=== PATIENT | female | born 1955 | race Caucasian/White ===

== ENCOUNTER 2016-02-26 21:21 | Observation (INO) | payer OTHER ==
[~2016-02-26] VITALS: Ht 165.1 cm; Wt 56.7 kg
[~2016-02-26 21:21] MED LIST: ADVAIR DISKUS 21 DSK IH; ADVAIR DISKUS 51 DSK IH; ADVAIR HFA1 AE1 IH; ATIVAN1 MG PO; AUGMENTIN 250 M1 TAB PO; AUGMENTIN 875 M1 TAB PO; BACLOFEN10 M1 PO; BACTRIM DS 8001 TA1 PO; BENADRYL50 MG PO; CEFDINIR300 MG PO; CEPHALEXIN500 M2 PO; DELTASONE20 MG PO; DELTASONE5 MG PO; DEPAKOTE PO; DIAZEPAM10 M1 PO; DIFLUCAN100 MG PO; ESKALITH300 M3 PO; KEFLEX500 M1 PO; KLONOPIN1 MG PO; NORCO 325 MG-51 TAB PO; NORCO 5/325 MG1 TAB PO; ORETIC25 MG PO; PREDNISONE50 M1 PO; PROVENTIL2.5 MG/3 M INH; RESTORIL15 MG PO; RESTORIL30 MG PO; SEROQUEL25 MG PO; SULFA PO; TEMAZEPAM7.5 M1 PO; TRAMADOL50 MG PO; TRAZODONE50 MG PO; TRIAZOLAM0.25 MG PO; TUSSIN PO; VENTOLIN H0.09 MG/Ac IH; VICODIN; VICODIN 5/500 M1 TAB PO; XANAX0.5 MG PO; XOPENEX HF0.045 MG/A IH; XOPENEX1.25 MG/0. INH; Z PACK; [UNRECOGNIZED DRUG - OTHER] IL; [UNRECOGNIZED DRUG - OTHER] OP; [UNRECOGNIZED DRUG - OTHER] PO
[2016-02-26 21:43] VITALS: BP 103/73
[2016-02-26] MEDS ORDERED: ASPIRIN 325 MG TAB PO ONE (21:50)
--- NOTE | 2016-02-26 23:25 | NUR ---
PT TO ER BED 2
--- NOTE | 2016-02-26 23:31 | NUR ---
Note undone in EDM - 02/27/16 at 0135 by TANYA PATIENT PRESENTS TO ED WITH C/O SEVERE CHEST PAIN SINCE 02/06, AND FOUL SMELLING URINE. HX COPD AND HTN. DENIES N/V/D; SKIN IS PINK/WARM/DRY; AAOX4 WITH EVEN AND STEADY GAIT; LUNGS CLEAR BL; HR EVEN AND REGULAR; PT DENIES ANY FEVER, SOB, OR COUGH AT THIS TIME; PATIENT STATES PAIN OF 10/10 AT THIS TIME; VSS; PATIENT POSITIONED FOR COMFORT; HOB ELEVATED; BEDRAILS UP X2; BED DOWN. ER MD MADE AWARE OF PT STATUS.
[2016-02-27] MEDS ORDERED: MORPHINE SULFATE 2 MG/ML SYR IVP PRN (01:15)
[2016-02-27] MEDS ORDERED: ONDANSETRON 4 MG/2 ML VIAL IVP PRN (01:15)
[2016-02-27] MEDS ORDERED: NITROGLYCERIN 0.4 MG TAB SL PRN (01:15)
--- NOTE | 2016-02-27 01:35 | NUR ---
PATIENT PRESENTS TO ED WITH C/O SEVERE CHEST PAIN SINCE 02/06, AND FOUL SMELLING URINE. HX COPD AND HTN. DENIES N/V/D; SKIN IS PINK/WARM/DRY; AAOX4 WITH EVEN AND STEADY GAIT; LUNGS CLEAR BL; HR EVEN AND REGULAR; PT DENIES ANY FEVER, SOB, OR COUGH AT THIS TIME; PATIENT STATES PAIN OF 10/10 AT THIS TIME; VSS; PATIENT POSITIONED FOR COMFORT; HOB ELEVATED; BEDRAILS UP X2; BED DOWN. ER MD MADE AWARE OF PT STATUS. .DENIES N/V/D; SKIN IS PINK/WARM/DRY; AAOX4 WITH EVEN AND STEADY GAIT; LUNGS CLEAR BL; HR EVEN AND REGULAR; PT DENIES ANY FEVER, SOB, OR COUGH AT THIS TIME; PATIENT STATES PAIN OF 9/10 AT THIS TIME; VSS; PATIENT POSITIONED FOR COMFORT; HOB ELEVATED; BEDRAILS UP X2; BED DOWN. ER MD MADE AWARE OF PT STATUS.
--- NOTE | 2016-02-27 01:44 | NUR ---
Patient will be admitted to care of DR. SHIELDS. Admited to TELE OBS. Will go to room 120A. Belongings list completed. Report to NORA DOAN.
[2016-02-27 01:59] VITALS: BP 121/70
--- NOTE | 2016-02-27 02:39 | NUR ---
RECEIVED FROM ER PER SUKH AWAKE AND ALERT. DENIES ANY CHEST PAIN AT THIS TIME. ON TELEMETRY MONITORING. NO SOB. ON 02 AT 2 LPM/NC. AFEBRILE. SKIN INTACT. CARE PLANS FOR THE NIGHT DISCUSSED WITH HER. A/O X 4. ROM X 4. DX. R/O ACS. CALL LIGHT WITH IN REACH. KEPT BED ON LOW POSITION. HL.
--- NOTE | 2016-02-27 04:03 | NUR ---
SLEEPING. NO RESTLESSNESS NOTED. TELEMETRY MONITORING.
[2016-02-27 04:11] VITALS: BP 119/68
--- NOTE | 2016-02-27 06:00 | NUR ---
SLEEPING. TELEMETRY MONITORING. NSR IN DATA SME. NO SOB. NO RESTLESSNESS NOTED.
--- NOTE | 2016-02-27 07:34 | NUR ---
ENDORSED TO THE NEXT RN FOR CONTINUITY OF CARE. EATING BREAKFAST AND IS SITTING UP IN BED.
--- NOTE | 2016-02-27 07:35 | NUR ---
RECEIVED REPORT FROM THE NIGHTSHIFT NURSE AT BEDSIDE FOR CONTINUITY OF CARE. PT IS ALERT AND ORIENTED. INTRODUCED MYSELF, UPDATED THE BOARD. PT IS EATING HER BREAKFAST. SHE C/O OF HER GOWN BEING WET. SHE HAD SPILLED HER JUICE ON HER GOWN. NO C/O OF CHEST PAIN. NO SIGNS OF DISTRESS. NOTED THE R FA 22G SL. WANTED TO GET UP AND AMBULATE TO THE BATHROOM. WILL CONTINUE TO MONITOR PT.
[2016-02-27 08:00] VITALS: BP 122/68
--- NOTE | 2016-02-27 08:00 | NUR ---
PT V/S WERE WITHIN NORMAL LIMITS. CHANGED HER GOWN AND HER LINENS. PT IS AMBULATING WELL. WONDERED IF SHE WILL GET D/C'D TODAY. SHE NEEDS TO CONTACT HER FRIEND FOR RIDE. NO ORDERS OF YET. NOTIFIED HER. NO OTHER COMPLAINTS AT THIS TIME. MET ALL HER NEEDS. WILL CONTINUE TO MONITOR PT.
[2016-02-27] MEDS: FAMOTIDINE 20 MG TAB PO SCH ×2 (08:46→20:15)
[2016-02-27] MEDS: clonazePAM 0.5 MG TAB PO SCH ×2 (08:48→20:15)
[2016-02-27] MEDS: NICOTINE TRANSD SYS 21 MG/24 HR PATCH TD SCH (08:49)
[2016-02-27] MEDS: HYDROcodone/APAP 5/325 MG 1 TAB TAB PO PRN ×2 (09:02→15:20)
--- NOTE | 2016-02-27 10:16 | NUR ---
PT IS SLEEPING COMFORTABLY. NO SIGNS OF DISTRESS. WILL CONTINUE TO MONITOR.
[2016-02-27 12:00] VITALS: BP 115/69
--- NOTE | 2016-02-27 12:10 | NUR ---
PT EATING HER LUNCH. PT IS AWAKE AND ORIENTED. ADRIANA, HER AGENT BROKER CALLED. GOT HER NUMBER AND GAVE TO PT REQUESTED SO THAT SHE CAN CALL. CALL LIGHT WITHIN REACH. NO COMPLAINTS AT THIS TIME. WILL CONTINUE TO MONITOR PT.
--- NOTE | 2016-02-27 13:16 | NUR ---
PT IS SOUNDLY ASLEEP. NO SIGNS OF DISTRESS. WILL CONTINUE TO MONITOR PT.
--- NOTE | 2016-02-27 15:00 | NUR ---
PT IS SLEEPING. SHE CLAIMS SHE IS VERY TIRED. HER ENVIRONMENTAL INSPECTOR DROPPED OFF CLOTHES. NO COMPLAINTS AT THIS TIME. WILL CONTINUE TO MONITOR.
[2016-02-27 16:00] VITALS: BP 125/76
--- NOTE | 2016-02-27 17:00 | NUR ---
PT WENT TO HAVE HER CT DONE.
[2016-02-27] MEDS: AZITHROMYCIN 250 MG in DEXTROSE 5% 250 ML IV SCH (17:13)
--- NOTE | 2016-02-27 18:36 | NUR ---
PT IS SLEEPING. DINNER BARELY TOUCHED. NO SIGNS OF DISTRESS. WILL CONTINUE TO MONITOR PT.
--- NOTE | 2016-02-27 19:04 | NUR ---
ENDORSED PT TO THE PATIENT REGISTRATION CLERK NURSE AT BEDSIDE FOR CONTINUITY OF CARE. PT IS IN STABLE CONDITION.
--- NOTE | 2016-02-27 19:30 | NUR ---
RECEIVED REPORT FROM NORA GUTIÉRREZ, AT BEDSIDE. INITIAL ASSESSMENT AND BODY CHECK DONE. PATIENT AAO X 4, ABLE TO FOLLOW COMMAND AND MAKE NEEDS KNOWN AND AMBULATORY BY SELF WITH STEADY GAIT. PATIENT CURRENTLY LYING DOWN ON THE BED. NO S/S OF DISTRESS OR SOB. PATIENT WAS COMPLAINING NAUSEA AT THIS TIME. SKIN WARM/DRY TO TOUCH WITH NORMAL COLOR AND INTACT. DISCUSSED PLAN OF CARE, PAIN MANAGEMENT AND MEDICATION REGIMEN WITH PATIENT AND PATIENT VERBALIZED UNDERSTANDING. PLACED PATIENT ON SAFETY PRECAUTIONS AND WILL CONTINUE TO MONITOR. CALL LIGHT LEFT WITHIN REACH.
[2016-02-27 19:50] VITALS: BP 120/75
[2016-02-27] MEDS: methylPREDNISolone SS 40 MG/ML VIAL IVP SCH (20:14)
--- NOTE | 2016-02-27 21:39 | NUR ---
ADMINISTERED DUE MEDICATIONS AND ZOFRAN FOR C/O NAUSEA MD'S ORDERED WITH EDUCATION GIVEN. PATIENT COMPLYING WITH MEDICATIONS AND STATED WITH SOME NAUSEA RELIEF AFTER POST-MEDICATION. ALL NEEDS ARE ATTENDED. KEPT PATIENT IN COMFORTABLE POSITION/WARM AND WILL CONTINUE TO MONITOR.
[2016-02-28] VITALS: BP 118/53
[2016-02-28] MEDS: HYDROcodone/APAP 5/325 MG 1 TAB TAB PO PRN ×3 (00:01→16:30)
--- NOTE | 2016-02-28 00:30 | NUR ---
PATIENT C/O MILD HEADACHE AND MEDICATED WITH NORCO. V/S REMAINED WNL AND NO S/S OF DISTRESS NOTED. WILL CONTINUE TO MONITOR.
[2016-02-28 04:00] VITALS: BP 112/60
--- NOTE | 2016-02-28 04:15 | NUR ---
PATIENT IS CLINICALLY STABLE WITH UNCHANGED V/S. WILL CONTINUE TO MONITOR.
[2016-02-28] MEDS: methylPREDNISolone SS 40 MG/ML VIAL IVP SCH ×2 (04:35→12:14)
--- NOTE | 2016-02-28 07:18 | NUR ---
PATIENT RESTED WELL THROUGHOUT THE SHIFT AND REMAINED IN STABLE CONDITION WITHOUT S/S OF DISTRESS NOTED. ENDORSED PLAN OF CARE, NORA LEVINE, AT BEDSIDE.
--- NOTE | 2016-02-28 07:19 | NUR ---
RECEIVED REPORT FROM NORA LOUIE. PT IS AAOX4. PT ON 2L NC O2 SAT AT 90%, NO S/S OF DISTRESS NOTED. IV TO RIGHT FA #22, PATENT AND INTACT.SKIN INTACT. NO N/V OR PAIN INDICATED. ALL SAFETY PRECAUTIONS IN PLACE, SIDE RAILSX2, BED IN LOW POSITION, AND CALL LIGHT WITHIN REACH. WILL CONTINUE TO MONITOR.
--- NOTE | 2016-02-28 07:42 | NUR ---
AWAKE AND ALERT RESPONSIVE DENIES SOB PATIENT WITH BREAKFAST TRAY AT THIS TIME C/O NASAL DRYNESS BARREL CAP SETTER TO ADD HUMIDIFIER
[2016-02-28 08:00] VITALS: BP 125/78
--- NOTE | 2016-02-28 08:37 | NUR ---
PATIENT HAS BEEN SCREENED AND CATEGORIZED MODERATE NUTRITION RISK. PATIENT WILL BE SEEN WITHIN 3-5 DAYS OF ADMISSION. 03/01/16 - 03/03/16 BENEDICTO DE LA ROSA; MICHAEL, RD
[2016-02-28] MEDS: IPRATROPIUM 0.02% 0.5 MG/2.5 ML NEBU INH PRN ×2 (08:43→13:30)
[2016-02-28] MEDS: ALBUTEROL 0.083% 2.5 MG/3 ML NEBU IH PRN ×2 (08:43→13:30)
[2016-02-28] MEDS: NICOTINE TRANSD SYS 21 MG/24 HR PATCH TD SCH (09:01)
[2016-02-28] MEDS: FAMOTIDINE 20 MG TAB PO SCH (09:04)
[2016-02-28] MEDS: clonazePAM 0.5 MG TAB PO SCH (09:07)
--- NOTE | 2016-02-28 09:13 | NUR ---
PT TOLERATED MEDS WELL. VSS. NICOTINE PATCH PLACED TO LEFT UPPER ARM. WILL CONTINUE TO MONITOR.
--- NOTE | 2016-02-28 10:30 | NUR ---
PT SLEEPING WITH NO DISTRESS NOTED.
[2016-02-28 12:00] VITALS: BP 108/62
--- NOTE | 2016-02-28 12:18 | NUR ---
PT TOLERATED MEDS WELL. WILL CONTINUE TO MONITOR.
--- NOTE | 2016-02-28 13:30 | NUR ---
SATURATION 89% ON SUPPLEMENATL OXYGEN AT 2 LPM VIA NC PATIENT STATES THAT SHE USES 2.5 LPM AT HOME POST [facility] THERAPY INCREASED SUPPLEMENTAL OXYGEN T0 2.5 LPM TO KEPP SATURATTION GREATER THAN 90% INTERMISSION COORDINATOR TO NOTIFY RN
--- NOTE | 2016-02-28 13:35 | NUR ---
PT SLEEPING WITH NO DISTRESS NOTED.
[2016-02-28] MEDS ORDERED: ASPIRIN81 M1 PO (15:40)
[2016-02-28] MEDS ORDERED: LIPITOR20 MG PO (15:41)
[2016-02-28] MEDS ORDERED: DIFLUCAN150 M1 PO (15:43)
[2016-02-28 16:00] VITALS: BP 114/51
[2016-02-28] MEDS ORDERED: COREG3.125 MG PO (16:19)
[2016-02-28] MEDS: AZITHROMYCIN 250 MG in DEXTROSE 5% 250 ML IV SCH (16:30)
--- NOTE | 2016-02-28 16:33 | NUR ---
PT TOLERATED MEDS WELL. PT C/O 08/22, ON RIGHT LOWER SIDE. VSS. ADMINISTERED NORCO ORDERED. WILL CONTINUE TO MONITOR.
--- NOTE | 2016-02-28 18:04 | NUR ---
PT TO BE DISCHARGED. WILL FOLLOW UP ON ORDERS.
--- NOTE | 2016-02-28 18:40 | NUR ---
PT HAS BEEN DISCHARGED. ALL PAPERWORK SIGNED. ALL QUESTIONS ANSWERED. ALL BELONGINGS AND PRESCRIPTIONS IN PT POSSESSION. IV DC'ED WITH CANNULA INTACT. WRISTBANDS AND TELE MONITOR REMOVED. NOTIFIED PRESSURE STEAMER TENDER, DOES NOT HAVE TO BE SEEN BY ADMITTING DUE 24HR STAY. PT WHEELED OUT OF UNIT WITH CAREGIVER AT BEDSIDE, TRANSPORT O2 BROUGHT BY CAREGIVER. PT IN STABLE CONDITION.
[2016-02-29] MEDS ORDERED: ASPIRIN 81 MG TAB.CHEW PO SCH (09:00)
[2016-02-29] MEDS ORDERED: ATORVASTATIN 20 MG TAB PO SCH (09:00)
[2016-02-29] MEDS ORDERED: CARVEDILOL 3.125 MG TAB PO SCH (09:00)
--- NOTE | 2016-02-29 14:24 | NUR ---
CM NOTE H&P & ER NOTES FAXED TO [facility] / FAX# [phone], ATTN: HUNTER #[phone] [id number]
== END 2016-02-28 18:40 | disposition home or self-care (01) ==
LOC: MED 21:21 → MTU 02-27 01:18
PROVIDERS: ADMIT Hospitalist; ATTEND Hospitalist
PROC: 3E0F7GC Introduction of Other Therapeutic Substance into Respiratory Tract, Via Natural or Artificial Opening (ICD-10-PCS; principal; 2016-02-28)
DX: J44.9 Chronic obstructive pulmonary disease, unspecified (principal); J96.10 Chronic respiratory failure, unspecified whether with hypoxia or hypercapnia; I10 Essential (primary) hypertension; Z99.81 Dependence on supplemental oxygen; F17.200 Nicotine dependence, unspecified, uncomplicated; Z86.73 Personal history of transient ischemic attack (TIA), and cerebral infarction without residual deficits; Z87.01 Personal history of pneumonia (recurrent); F41.9 Anxiety disorder, unspecified
CPT/HCPCS: 36415; 71010; 71250; 80053; 82550; 82553; 83735; 83880; 84484; 85025; 85379; 85610; 85730; 87081; 87804; 93005; 94640; 94760; 96365; 96366; 96372; 96375; 96376; 99285; G0378; J0456; J1644; J2405; J2920; J7030; J7060; J7613; J7644

== ENCOUNTER 2016-03-22 12:52 | Emergency (ER) | payer OTHER ==
[~2016-03-22] VITALS: Ht 165.1 cm; Wt 54.4 kg
[~2016-03-22 12:52] MED LIST changes: +ASPIRIN81 M1 PO; +COREG3.125 MG PO; +DIFLUCAN150 M1 PO; +LIPITOR20 MG PO
[2016-03-22 12:56] VITALS: BP 115/75
--- NOTE | 2016-03-22 13:31 | NUR ---
TO X-RAY VIA WC=
--- NOTE | 2016-03-22 13:50 | NUR ---
61 F BIB [facility]REIND C/O SHARP PAIN R UPPER BACK X 2 WKS. DENIES N/V/D; SKIN IS PINK/WARM/DRY; AAOX4 WITH EVEN AND STEADY GAIT;PT NOTED W/ SOB,ON O2 AT HOME 2.5 L/M, LUNGS CONGESTED BL; HR EVEN AND REGULAR; PT DENIES ANY FEVER OR COUGH AT THIS TIME; PATIENT STATES PAIN OF 08/22 AT THIS TIME; PATIENT POSITIONED FOR COMFORT; HOB ELEVATED; BEDRAILS UP X2; BED DOWN. BIGG MARIE MADE AWARE OF PT STATUS. Addendum: 03/22/16 at 1423 by MED1 PT C/O L RIB PAIN, SHARP, NON RADIATING 08/22, X 1 YEAR.
--- NOTE | 2016-03-22 14:50 | NUR ---
WARM BLANKET/PILLOW PROVIDED TO PT FOR COMFORT.
--- NOTE | 2016-03-22 14:55 | NUR ---
ER MD DR. DELGADO EVALUATING PT AT BEDSIDE.
--- NOTE | 2016-03-22 15:00 | NUR ---
Ricardo martinez in [facility] - 03/22/16 at [email or web address] DELGADO AT BEDSIDE
[2016-03-22] MEDS ORDERED: ALBUTEROL SULFATE/IPRATROPIU 3 ML SOL IH ONE (15:05)
[2016-03-22] MEDS ORDERED: methylPREDNISolone SS 125 MG in WATER STERILE 2 ML IV ONE (15:05)
[2016-03-22] MEDS ORDERED: ALBUTEROL 0.083% 2.5 MG/3 ML NEBU INH ONE (15:05)
--- NOTE | 2016-03-22 15:11 | NUR ---
RT AT BEDSIDE.
--- NOTE | 2016-03-22 15:46 | NUR ---
Patient appears to be resting comfortably in bed. Respirations even and unlabored.WILL CONTINUE TO MONITOR
--- NOTE | 2016-03-22 15:52 | NUR ---
FRIEND/CPG AT BEDSIDE
--- NOTE | 2016-03-22 17:00 | NUR ---
IV removed, catheter intact and site benign. Applied folded 4x4 gauze and tape to stop bleeding.
[2016-03-22 17:05] VITALS: BP 100/61
--- NOTE | 2016-03-22 17:05 | NUR ---
Patient discharged with v/s stable. Written and verbal after care instructions given and explained. Patient alert, oriented and verbalized understanding of instructions. Wheel Chair Assisted with to car. All questions addressed prior to discharge. ID band removed. Patient advised to follow up with PMD. Rx of MOTRIN & PREDNISONE given. Patient educated on indication of medication including possible reaction and side effects. Opportunity to ask questions provided and answered.
== END 2016-03-22 17:05 | disposition home or self-care (01) ==
LOC: MED 12:52
DX: R07.89 Other chest pain (principal); R06.02 Shortness of breath; M54.6 Pain in thoracic spine; I10 Essential (primary) hypertension; J45.909 Unspecified asthma, uncomplicated; F17.200 Nicotine dependence, unspecified, uncomplicated; Z86.73 Personal history of transient ischemic attack (TIA), and cerebral infarction without residual deficits; Z88.1 Allergy status to other antibiotic agents; Z88.2 Allergy status to sulfonamides; Z79.899 Other long term (current) drug therapy
CPT/HCPCS: 36415; 71020; 80053; 81002; 83880; 84484; 85025; 85610; 85730; 93005; 94640; 96374; 99285; J2930; J7613; J7620

== ENCOUNTER 2016-05-17 16:32 | Emergency (ER) | payer OTHER ==
[~2016-05-17] VITALS: Ht 165.1 cm; Wt 54.0 kg
[~2016-05-17 16:32] MED LIST changes: -ADVAIR DISKUS 21 DSK IH; -ADVAIR DISKUS 51 DSK IH; -ADVAIR HFA1 AE1 IH; +ALBU0.0912 IH; +ASPI81CT89 PO; -ASPIRIN81 M1 PO; -ATIVAN1 MG PO; +ATOR20TA PO; -AUGMENTIN 250 M1 TAB PO; -AUGMENTIN 875 M1 TAB PO; -BACLOFEN10 M1 PO; -BACTRIM DS 8001 TA1 PO; -BENADRYL50 MG PO; +CARV3.12 PO; -CEFDINIR300 MG PO; -CEPHALEXIN500 M2 PO; +CLON1TAB PO; -COREG3.125 MG PO; -DELTASONE20 MG PO; -DELTASONE5 MG PO; -DEPAKOTE PO; -DIAZEPAM10 M1 PO; -DIFLUCAN100 MG PO; -DIFLUCAN150 M1 PO; -ESKALITH300 M3 PO; +FLUC150T PO; -KEFLEX500 M1 PO; -KLONOPIN1 MG PO; -LIPITOR20 MG PO; -NORCO 325 MG-51 TAB PO; -NORCO 5/325 MG1 TAB PO; -ORETIC25 MG PO; -PREDNISONE50 M1 PO; +PRON INH; -PROVENTIL2.5 MG/3 M INH; -RESTORIL15 MG PO; -RESTORIL30 MG PO; -SEROQUEL25 MG PO; -SULFA PO; -TEMAZEPAM7.5 M1 PO; -TRAMADOL50 MG PO; -TRAZODONE50 MG PO; -TRIAZOLAM0.25 MG PO; -TUSSIN PO; -VENTOLIN H0.09 MG/Ac IH; -VICODIN; -VICODIN 5/500 M1 TAB PO; -XANAX0.5 MG PO; -XOPENEX HF0.045 MG/A IH; -XOPENEX1.25 MG/0. INH; -Z PACK; -[UNRECOGNIZED DRUG - OTHER] IL; -[UNRECOGNIZED DRUG - OTHER] OP; -[UNRECOGNIZED DRUG - OTHER] PO
[2016-05-17 17:17] VITALS: BP 131/75
--- NOTE | 2016-05-17 20:26 | NUR ---
Patient ambulated to bed 03.
--- NOTE | 2016-05-17 20:33 | NUR ---
PT C/O SORE THROAT, LEFT RIB PAIN , PT VERBALIZED I THINK I ALSO HAVE UTI WITH PAIN UPON URINATION HX OF COPD . DENIES N/V/D; SKIN IS PINK/WARM/DRY; AAOX4 WITH EVEN AND STEADY GAIT; LUNGS DIMINSIHED BL; HR EVEN AND REGULAR; PT DENIES ANY FEVER, CP, SOB, OR COUGH AT THIS TIME; PATIENT STATES PAIN OF 7/10 AT THIS TIME; VSS; PATIENT POSITIONED FOR COMFORT; HOB ELEVATED; BEDRAILS UP X2; BED DOWN. ER MD MADE AWARE OF PT STATUS.
--- NOTE | 2016-05-17 21:01 | NUR ---
Dr. Mendoza evaluating patient at bedside.
--- NOTE | 2016-05-17 21:34 | NUR ---
Patient back from CT via wheelchair per tech.
[2016-05-17 22:20] VITALS: BP 131/75
--- NOTE | 2016-05-17 22:20 | NUR ---
Patient discharged with v/s stable. Written and verbal after care instructions given and explained BY MD PERSON. Patient alert, oriented and verbalized understanding of instructions. Ambulatory with steady gait. All questions addressed prior to discharge. ID band removed. Patient advised to follow up with PMD. Rx of AUGMENTIN given. Patient educated on indication of medication including possible reaction and side effects. Opportunity to ask questions provided and answered.
== END 2016-05-17 22:20 | disposition home or self-care (01) ==
LOC: MED 16:32
DX: J02.9 Acute pharyngitis, unspecified (principal); R07.81 Pleurodynia; F17.210 Nicotine dependence, cigarettes, uncomplicated; J44.9 Chronic obstructive pulmonary disease, unspecified; Z79.82 Long term (current) use of aspirin; Z79.899 Other long term (current) drug therapy; Z88.2 Allergy status to sulfonamides; Z88.1 Allergy status to other antibiotic agents; Z88.8 Allergy status to other drugs, medicaments and biological substances
CPT/HCPCS: 71250; 81002; 99284

== ENCOUNTER 2016-07-14 14:03 | Emergency (ER) | payer OTHER ==
[~2016-07-14] VITALS: Ht 165.1 cm; Wt 54.4 kg
[~2016-07-14 14:03] MED LIST changes: +ADVAIR DISKUS 21 DSK IH; +ADVAIR DISKUS 51 DSK IH; +ADVAIR HFA1 AE1 IH; -ALBU0.0912 IH; -ASPI81CT89 PO; +ASPIRIN81 M1 PO; +ATIVAN1 MG PO; -ATOR20TA PO; +AUGMENTIN 250 M1 TAB PO; +AUGMENTIN 875 M1 TAB PO; +BACLOFEN10 M1 PO; +BACTRIM DS 8001 TA1 PO; +BENADRYL50 MG PO; -CARV3.12 PO; +CEFDINIR300 MG PO; +CEPHALEXIN500 M2 PO; -CLON1TAB PO; +COREG3.125 MG PO; +DELTASONE20 MG PO; +DELTASONE5 MG PO; +DEPAKOTE PO; +DIAZEPAM10 M1 PO; +DIFLUCAN100 MG PO; +DIFLUCAN150 M1 PO; +ESKALITH300 M3 PO; -FLUC150T PO; +KEFLEX500 M1 PO; +KLONOPIN1 MG PO; +LIPITOR20 MG PO; +NORCO 325 MG-51 TAB PO; +NORCO 5/325 MG1 TAB PO; +ORETIC25 MG PO; +PREDNISONE50 M1 PO; -PRON INH; +PROVENTIL2.5 MG/3 M INH; +RESTORIL15 MG PO; +RESTORIL30 MG PO; +SEROQUEL25 MG PO; +SULFA PO; +TEMAZEPAM7.5 M1 PO; +TRAMADOL50 MG PO; +TRAZODONE50 MG PO; +TRIAZOLAM0.25 MG PO; +TUSSIN PO; +VENTOLIN H0.09 MG/Ac IH; +VICODIN; +VICODIN 5/500 M1 TAB PO; +XANAX0.5 MG PO; +XOPENEX HF0.045 MG/A IH; +XOPENEX1.25 MG/0. INH; +Z PACK; +[UNRECOGNIZED DRUG - OTHER] IL; +[UNRECOGNIZED DRUG - OTHER] OP; +[UNRECOGNIZED DRUG - OTHER] PO
--- NOTE | 2016-07-14 14:03 | NUR ---
Patient was BIBA and taken to bed 04 via gurney per EMS.
[2016-07-14 14:05] VITALS: BP 170/106
[2016-07-14] MEDS ORDERED: ALBUTEROL SULFATE/IPRATROPIU 3 ML SOL IH ONE (14:05)
[2016-07-14] MEDS ORDERED: ALBUTEROL 0.083% 2.5 MG/3 ML NEBU INH ONE (14:05)
[2016-07-14] MEDS ORDERED: predniSONE 20 MG TAB PO ONE (14:05)
--- NOTE | 2016-07-14 14:06 | NUR ---
PATIENT PRESENTS TO ED WITH C/O SOB SINCE THIS AM . PT STATES SHE HAS HX OF COPD, HTN, ANXIETY AND IS NOT COMPLIANT W/MEDICATIONS . DENIES N/V/D; SKIN IS PALE/WARM/DRY; AAOX4; LUNG SOUNDS DIMINISHED BILATERALLY THROUGHOUT; HR TACHYPNEAC; PT DENIES ANY FEVER, OR CP AT THIS TIME; PATIENT STATES PAIN TO POSTERIOR NECK OF 10/10 AT THIS TIME; VSS; PATIENT POSITIONED FOR COMFORT; HOB ELEVATED; BEDRAILS UP X2; BED DOWN. ER MD MADE AWARE OF PT STATUS.
--- NOTE | 2016-07-14 14:18 | NUR ---
RT ADMINISTERING BREATHING TX AT BEDSIDE.
--- NOTE | 2016-07-14 14:26 | NUR ---
MEDICATION ADMINISTERED ORDERED.
[2016-07-14] MEDS ORDERED: predniSONE 20 MG TAB ONE (14:27)
--- NOTE | 2016-07-14 15:11 | NUR ---
Gilles. EVALUATING PT AT BEDSIDE.
[2016-07-14] MEDS ORDERED: MORPHINE SULFATE 4 MG/ML SYR IVP ONE (15:25)
[2016-07-14] MEDS ORDERED: MORPHINE SULFATE 4 MG/ML SYR ONE (15:44)
--- NOTE | 2016-07-14 15:46 | NUR ---
MEDICATION ADMINISTERED ORDERED.
--- NOTE | 2016-07-14 16:00 | NUR ---
Patient discharged with v/s stable. Written and verbal after care instructions given and explained. Patient alert, oriented and verbalized understanding of instructions. Ambulatory with steady gait. All questions addressed prior to discharge. ID band removed. Patient advised to follow up with PMD. Rx of NORCO, ALBUTEROL MDI, PREDNISONE given. Patient educated on indication of medication including possible reaction and side effects. Opportunity to ask questions provided and answered.
[2016-07-14 16:05] VITALS: BP 148/88
== END 2016-07-14 16:00 | disposition home or self-care (01) ==
LOC: MED 14:03
DX: J44.9 Chronic obstructive pulmonary disease, unspecified (principal); R07.89 Other chest pain; M54.5 Low back pain; I10 Essential (primary) hypertension; F41.9 Anxiety disorder, unspecified; F17.210 Nicotine dependence, cigarettes, uncomplicated; Z88.2 Allergy status to sulfonamides; Z88.8 Allergy status to other drugs, medicaments and biological substances
CPT/HCPCS: 36415; 71010; 80053; 83880; 84484; 85025; 85610; 85730; 94640; 96374; 99285; J2270; J7512; Q0092